=== PATIENT | female | born 1965 | race Caucasian/White ===

== ENCOUNTER 2021-03-18 09:59 | Outpatient (CLI) | payer MEDICARE, SELFPAY ==
--- NOTE | 2021-03-18 10:03 | XRR_ITS ---
PROCEDURE INFORMATION: Exam: XR Chest Exam date and time: 03/18/2021 10:03 AM Age: 55 years old Clinical indication: Condition or disease; Lung condition and disease; Wheezing; Prior surgery; Surgery type: Double mastectomy; Patient HX: Diagnosed sarcoidosis in 2012. Covid + in jan and is still having respiratory issues. ; Additional info: Sarcoidosis of lung/wheezing TECHNIQUE: Imaging protocol: XR of the chest. Views: 2 views. COMPARISON: CR Chest 2 views* [id number] 02/21/2015 6:34 PM FINDINGS: Lungs: Unremarkable. No consolidation. Pleural spaces: Unremarkable. No pleural effusion. No pneumothorax. Heart/Mediastinum: Unremarkable. No cardiomegaly. Bones/joints: Moderate DJD is present in the spine with scattered osteophytes and sclerosis. Soft tissues: Surgical clips project on the chest bilaterally XR/XR chest 2V* [id number] IMPRESSION: No significant cardiopulmonary abnormality.
== END 2021-03-18 10:00 | disposition home or self-care (01) ==
PROVIDERS: PCP Nurse Practitioner Family; Visit Provider Nurse Practitioner Family
DX: D86.0 Sarcoidosis of lung (principal); R06.2 Wheezing
CPT/HCPCS: 71046

== ENCOUNTER 2021-06-15 12:54 | Outpatient (CLI) | payer MEDICARE, SELFPAY ==
--- NOTE | 2021-06-15 13:06 | XR_ITS ---
WS: [id number] Chest with right rib detail, 4 views, 06/15/2021 Clinical Data: PLEURODYNIA Comparison: PA and lateral chest, 03/18/2021. Findings: The lungs show no nodules, masses, or effusions. The heart is normal. No pneumonia or pneumothorax is seen. There are surgery clips overlying both lungs peripherally. The ribs are intact. No rib fractures seen. No subcutaneous emphysema is present. There is deformity of the superior aspect of the right iliac crest which may be from surgery. There i s osteoarthritis of the thoracic and lumbar vertebral bodies. XR/XR ribs RT mn 3V w CXR1V [id number] Impression: Negative chest with right rib detail.
== END 2021-06-15 12:55 | disposition home or self-care (01) ==
LOC: RAD 12:56
PROVIDERS: PCP Nurse Practitioner Family; Visit Provider Nurse Practitioner Family
DX: R07.81 Pleurodynia (principal)
CPT/HCPCS: 71101

== ENCOUNTER 2022-07-16 08:27 | Outpatient (CLI) | payer MEDICARE, SELFPAY ==
--- NOTE | 2022-07-16 08:44 | XR_ITS ---
WS: [id number] EXAMINATION: XR chest 2V* [id number] REASON FOR EXAM: COUGH COMPARISON: 06/15/2021 ORDER DATE: 07/16/2022 8:47 AM FINDINGS: There is somewhat patchy bilateral infiltrates which are most prominent in the lingula and right midd le lobe as indicated on the lateral view with some lower lobe involvement. Upper lobes are clear. Hany ateral axillary surgical clips noted. The cardiac and mediastinal outlines are unremarkable. There a re no significant pleural effusions . No significant abnormalities are noted in the spine or remainde r of the bony thorax. XR/XR chest 2V* [id number] IMPRESSION: BILATERAL INFILTRATES GREATER ON THE LEFT. ATYPICAL FOR ASPIRATION PNEUMONIA BU T NOT EXCLUDED.
== END 2022-07-16 08:28 | disposition home or self-care (01) ==
PROVIDERS: PCP Nurse Practitioner Family; Visit Provider Family Medicine
DX: R05.9 Cough, unspecified (principal)
CPT/HCPCS: 71046

== ENCOUNTER 2022-08-19 15:01 | Outpatient (CLI) | payer MEDICARE, SELFPAY ==
--- NOTE | 2022-08-19 15:15 | XR_ITS ---
WS: [id number] DEXA (DUAL ENERGY X-RAY ABSORPTIOMETRY) Bone mineral density was performed using a [employer] 3D machine. HISTORY: POSTMENOPAUSAL STATE COMPARISON: None available. Lumbar spine BMD (L1-L4): 1.480 g/cm2 T score: 2.5 Z score: 2.5 Total hip BMD: Left: 0.924 g/cm2. T score: -0.7 Z score: -0.6 Right: 0.932 g/cm2. T score: -0.6 Z score: -0.6 10 year probability of a major osteoporotic fracture is 6.6%. XR/XR DEXA axial skeleton* [id number] IMPRESSION: NORMAL BONE MINERAL DENSITY based upon the WHO classification for females.
== END 2022-08-19 15:02 | disposition home or self-care (01) ==
PROVIDERS: PCP Nurse Practitioner Family; Visit Provider Nurse Practitioner Family
DX: Z78.0 Asymptomatic menopausal state (principal)
CPT/HCPCS: 77080

== ENCOUNTER 2022-10-18 10:59 | Outpatient (CLI) | payer MEDICARE, SELFPAY ==
--- NOTE | 2022-10-18 11:10 | XR_ITS ---
WS: [id number] Exam: XR lumbar spine min 4V [id number] Date/Time of Exam: 10/18/2022 11:12 AM Reason For Exam: LOW BACK PAIN/INTERVERTEBRAL DISC DEGENERATION,LUMBAR REGION No acute fracture or dislocation. Degenerative disc changes at all levels and spondylosis. Facet DJD at all levels. Mild dextroscoliosis. There are defects in both iliac crests that may represent areas of prior bone harvesting. XR/XR lumbar spine min 4V [id number] IMPRESSION: 1. Moderate degenerative change of the lumbar spine but no fracture or malalign ment. 2. Mild dextroscoliosis.
== END 2022-10-18 11:00 | disposition home or self-care (01) ==
PROVIDERS: PCP Nurse Practitioner Family; Visit Provider Nurse Practitioner Family
DX: M51.36 Other intervertebral disc degeneration, lumbar region (principal); M41.86 Other forms of scoliosis, lumbar region; M47.816 Spondylosis without myelopathy or radiculopathy, lumbar region
CPT/HCPCS: 72110

== ENCOUNTER 2023-05-04 16:44 | Outpatient (CLI) | payer MEDICARE, SELFPAY ==
--- NOTE | 2023-05-04 16:49 | XRR_ITS ---
PROCEDURE INFORMATION: Exam: XR Left Ribs with PA Chest Exam date and time: 05/04/2023 4:56 PM Age: 57 years old Clinical indication: Injury or trauma; Fall; Rib area, left side; Sprain or strain; Prior surgery; Surgery date: 6+ months; Surgery type: Mastectomy; Patient HX: HX of breast cancer; Additional info: Strain of muscle, fall TECHNIQUE: Imaging protocol: Radiologic exam of the left ribs with PA chest. Views: 3 views COMPARISON: CR XR chest 2V* [id number] 07/16/2022 8:46 AM FINDINGS: Lungs: Both lungs demonstrate chronic interstitial coarsening. No lung mass or infiltrate. There are few scattered areas of nodularity in the left lung that have increased in number over the past several months. Pleural spaces: Unremarkable. No pleural effusion. No pneumothorax. Heart/Mediastinum: Unremarkable. No cardiomegaly. Bones/joints: Unremarkable. XR/XR ribs LT mn 3V w CXR1V [id number] IMPRESSION: Areas of nodularity involving the left lung which have worsened over the past several months. At some point you may wish to obtain CT chest for further workup. No rib fracture noted
== END 2023-05-04 16:45 | disposition home or self-care (01) ==
LOC: RAD 16:46
PROVIDERS: PCP Nurse Practitioner Family; Visit Provider Nurse Practitioner Family
DX: S29.011A Strain of muscle and tendon of front wall of thorax, initial encounter (principal); W19.XXXA Unspecified fall, initial encounter; R91.8 Other nonspecific abnormal finding of lung field; R07.81 Pleurodynia; Z85.3 Personal history of malignant neoplasm of breast; Z90.10 Acquired absence of unspecified breast and nipple
CPT/HCPCS: 71101

== ENCOUNTER 2023-05-23 12:08 | Outpatient (CLI) | payer MEDICARE, SELFPAY ==
--- NOTE | 2023-05-23 12:15 | US_ITS ---
WS: [email or web address] ULTRASOUND SOFT TISSUES RIGHT neck HISTORY: MASS , LUMP, NECK , SWELLING COMPARISON: None available. TECHNIQUE: 2-D and color Doppler imaging is submitted. Ultrasound is directed to the palpable area along the RIGHT neck. No abnormality is identified by ult rasound. There is a normal appearance of the soft tissues. Fascial planes are intact. No adenopathy. IMPRESSION: Negative soft tissue ultrasound RIGHT neck.
--- NOTE | 2023-05-23 12:15 | CT_ITS ---
WS: [email or web address] CT chest wo con [id number] HISTORY: Sarcoidosis/ABNORMAL FINDINGS ON DIAGNOSTIC IMAGING TECHNIQUE: Axial imaging performed through the thorax. Coronal and sagittal reformats are submitted. All CT scans at [facility] use at least one of these dose optimization techniques: automated exposure control; mA and/or kV adjustment per patient size (includes targeted exams where dose is mat ched to clinical indication); or iterative reconstruction. CONTRAST: None DLP: 507.43 mGy.cm COMPARISON: None available. Lungs and central airway: Reticular nodular opacifications are noted bilaterally. There are opacifica tions in the upper and lower lung connolly and within both central and peripheral distributions. Areas of consolidation with the largest measuring 5.8 x 3.5 cm in the LEFT lower lobe. Some of these reticu lar nodular opacifications do extend along the perilymphatic distributions. There are no prior studie s for comparison. Pleura: Normal. No pleural effusion. Heart and pericardium: Normal size heart with no pericardial effusion. Mediastinum and kay: No significantly enlarged parahilar or paratracheal lymph nodes. Vessels: Normal size aortic and pulmonary artery. No coronary artery calcifications. Chest wall and lower neck: Bilateral breast implants. Upper abdomen: Cholelithiasis. No evidence for acute cholecystitis. No adrenal mass. Osseous structures: No destructive process. IMPRESSION: 1. Bilateral, multi lobar nodules and reticular nodular opacifications throughout the lungs. Some of these are in a perilymphatic distribution consistent with sarcoidosis. Other etiologies such as endo bronchial pneumonia and histoplasmosis should be considered. 2. There is not a typical distribution of lymphadenopathy as seen with sarcoidosis. 3. Cholelithiasis without acute cholecystitis.
== END 2023-05-23 12:09 | disposition home or self-care (01) ==
LOC: RAD 12:08
PROVIDERS: PCP Nurse Practitioner Family; Visit Provider Nurse Practitioner Family
DX: D86.9 Sarcoidosis, unspecified (principal); R93.89 Abnormal findings on diagnostic imaging of other specified body structures; R91.8 Other nonspecific abnormal finding of lung field; K80.20 Calculus of gallbladder without cholecystitis without obstruction; R22.1 Localized swelling, mass and lump, neck
CPT/HCPCS: 71250; 76882

== ENCOUNTER 2024-07-17 11:44 | Outpatient (CLI) | payer MEDICARE, SELFPAY ==
--- NOTE | 2024-07-17 11:54 | XRR_ITS ---
PROCEDURE INFORMATION: Exam: XR Right Knee Exam date and time: 07/17/2024 12:01 PM Age: 58 years old Clinical indication: Right; HX of pinched nerves and bulging discs, pain in low back running down to knee x3-4 weeks, swelling in knee down to ankle. HX of breast cancer; Additional info: Effusion R knee/pain in right knee TECHNIQUE: Imaging protocol: Radiologic exam of the right knee. Views: 3 views. COMPARISON: US soft tissue/extremity [id number] 05/23/2023 1:11 PM FINDINGS: Bones/joints: There is normal anatomic alignment of the right knee. No evidence of a fracture. Spurring of the tibial spines. Small patellofemoral osteophytes. Small right knee effusion. Soft tissues: Normal. XR/XR knee RT 3V* [id number] IMPRESSION: 1. Mild chronic osteoarthritic changes of the right knee without fracture. 2. Small right knee effusion.
--- NOTE | 2024-07-17 11:54 | XRR_ITS ---
PROCEDURE INFORMATION: Exam: XR Lumbosacral Spine Exam date and time: 07/17/2024 12:01 PM Age: 58 years old Clinical indication: Lumbago with sciatica; Right; HX of pinched nerves and bulging discs, pain in low back running down to knee x3-4 weeks, swelling in knee down to ankle. HX of breast cancer; Additional info: Low back pain/sciatica TECHNIQUE: Imaging protocol: Radiologic exam of the lumbosacral spine. Views: 4 or 5 views. COMPARISON: CR XR lumbar spine min 4V [id number] 10/18/2022 11:13 AM FINDINGS: Bones/joints: Stable multilevel chronic degenerative changes throughout the thoracolumbar spine. Stable grade 1 retrolisthesis of L3 over L4. No suggestion of a compression fracture deformity. There is multilevel chronic degenerative disc disease throughout the lumbar spine, most severe at L5-S1. Stable defects in the bilateral iliac crests, possibly secondary to prior bone harvest. Soft tissues: Unremarkable. XR/XR lumbar spine min 4V [id number] IMPRESSION: Grossly stable appearing multilevel chronic degenerative changes throughout the lumbar spine without fracture.
== END 2024-07-17 11:45 | disposition home or self-care (01) ==
PROVIDERS: PCP Nurse Practitioner Family; Visit Provider Nurse Practitioner Family
DX: M25.461 Effusion, right knee (principal); M17.11 Unilateral primary osteoarthritis, right knee; M43.16 Spondylolisthesis, lumbar region; M54.30 Sciatica, unspecified side; M47.895 Other spondylosis, thoracolumbar region; M51.369 Other intervertebral disc degeneration, lumbar region without mention of lumbar back pain or lower extremity pain; M51.379 Other intervertebral disc degeneration, lumbosacral region without mention of lumbar back pain or lower extremity pain; R93.7 Abnormal findings on diagnostic imaging of other parts of musculoskeletal system; M76.891 Other specified enthesopathies of right lower limb, excluding foot; M25.761 Osteophyte, right knee
CPT/HCPCS: 72110; 73562